=== PATIENT | female | born 1935 | race Hispanic/Latino ===

== ENCOUNTER 2017-02-28 13:46 | Emergency (ER) | payer MEDICARE ==
[2017-02-28 13:46] VITALS: BMI 47.8
[2017-02-28 14:14] VITALS: TEMP 98.6
[2017-02-28 14:26] VITALS: O2SAT 98
--- NOTE | 2017-02-28 14:44 | ED PDOC ---
Arrival/HPI - General Chief Complaint: Trauma Time Seen by Provider: 02/28/17 14:17 Historian: Patient - History of Present Illness Narrative History of Present Illness (Text): 02/28/17 14:40 82 year old female, whose past medical history includes hypertension, presents to the emergency department complaining of injury s/p fall. 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 Patient injured her left shoulder, head, and coccyx. She has experienced intermittent dizziness since fall. Also, patient mentions having chronic vertigo prior to incident. Patient denies of any loss of consciousness, nausea, vomiting, weakness, chest pain, palpitations, paresis, or any other complaints. No PMD Time/Duration: < week (6 days) Symptom Onset: Sudden Symptom Course: Unchanged Associated Symptoms (Text): 02/28/17 15:18 Chronic vertigo. No improvement with meclizine. Reports 6 days ago she bent over to fiber picker a bingham and developed severe vertigo. She fell onto her coccyx shoulder and head. No chest pain palpitations or dyspnea. No abdominal pain nausea or vomiting. No other injury or trauma. She appears to be in no distress. Past Medical History - Provider Review Nursing Documentation Reviewed: Yes - Infectious Disease Hx of Infectious Diseases: None - Tetanus Immunization Tetanus Immunization: Unknown - Reproductive Menopause: Yes - Cardiac Hx Hypertension: Yes Hx Pacemaker: No - Neurological Hx Paralysis: No - Hematological/Oncological Hx Blood Transfusions: No Hx Blood Transfusion Reaction: No - Musculoskeletal/Rheumatological Hx Musculoskeletal Disorders: Yes (SCIATICA) - Psychiatric Hx Depression: No Hx Emotional Abuse: No Hx Physical Abuse: No Hx Substance Use: No - Surgical History Hx Cholecystectomy: Yes Hx Coronary Stent: Yes Hx Hysterectomy: Yes Hx Orthopedic Surgery: Yes (Left Knee Replacement) - Anesthesia Hx Anesthesia Reactions: No Hx Malignant Hyperthermia: No - Suicidal Assessment Feels Threatened In Home Enviroment: No Family/Social History - Physician Review Nursing Documentation Reviewed: Yes Family/Social History: No Known Family HX Smoking Status: Never Smoked Hx Alcohol Use: No Hx Substance Use: No Hx Substance Use Treatment: No Allergies/Home Meds Allergies/Adverse Reactions: Allergies No Known Allergies Allergy (Verified 09/17/13 18:46) Home Medications: Home Meds Medication Instructions Recorded Confirmed Aspirin [Lora Aspirin Children's] 81 mg PO DAILY 12/09/12 02/28/17 Paroxetine HCl [Paroxetine] 20 mg PO DAILY 12/09/12 02/28/17 Metoprolol Succinate 50 mg PO BID 03/27/13 02/28/17 Simvastatin 40 mg PO DAILY 09/17/13 02/28/17 Dexlansoprazole [Dexilant] 30 mg PO DAILY 02/28/17 02/28/17 Iron Pill 65 mg PO DAILY 02/28/17 02/28/17 Meclizine [Antivert] 12.5 mg PO 02/28/17 Valsartan/Hydrochlorothiazide 1 tab PO DAILY 02/28/17 02/28/17 [Valsartan and Hydrochlorothiazide 12.5 mg-160] Vitamin E [Vitamin E 400 Units Cap] 400 iu PO DAILY 02/28/17 02/28/17 oxyCODONE [oxycodone Hydrochloride] 0 mg PO PRN PRN 02/28/17 02/28/17 Review of Systems - Physician Review All systems were reviewed & negative as marked: Yes - Review of Systems Constitutional: Normal Respiratory: Normal Cardiovascular: absent: Chest Pain, Palpitations Gastrointestinal: absent: Abdominal Pain, Nausea, Vomiting Musculoskeletal: Other (left shoulder, coccyx, and head injury) Neurological: Dizziness. absent: Headache, Focal Weakness, Gait Changes, Seizure, Other (no loss of consciousness) Physical Exam Vital Signs Reviewed: Yes Vital Signs Temp Pulse Resp BP Pulse Ox 02/28/17 16:00 55 L 16 138/65 98 02/28/17 14:20 60 18 134/54 L 98 02/28/17 14:09 98.6 F 56 L 18 134/54 L 97 Temperature: Afebrile Blood Pressure: Normal Pulse: Regular Respiratory Rate: Normal Appearance: Positive for: Other (morbidly obese) Pain Distress: None Mental Status: Positive for: Alert and Oriented X 3 - Systems Exam Head: Present: Atraumatic, Normocephalic Pupils: Present: PERRL Extroacular Muscles: Present: EOMI Conjunctiva: Present: Normal Ears: Present: NORMAL TM, Normal Canal. No: Erythema, TM Bulging Mouth: Present: Moist Mucous Membranes Pharnyx: No: ERYTHEMA, EXUDATE, TONSILS ENLARGED Neck: Present: Normal Range of Motion Respiratory/Chest: Present: Clear to Auscultation, Good Air Exchange. No: Respiratory Distress, Accessory Muscle Use Cardiovascular: Present: Regular Rate and Rhythm, Normal S1, S2. No: Murmurs Abdomen: Present: Normal Bowel Sounds. No: Tenderness, Distention, Peritoneal Signs, Rebound, Guarding Back: Present: Normal Inspection Upper Extremity: Present: Normal ROM, Tenderness (left lateral shoulder tenderness). No: Swelling, Other (no skin changes) Lower Extremity: Present: Normal ROM, Tenderness (point tenderness to coccyx). No: Edema, CALF TENDERNESS, Swelling Neurological: Present: GCS=15, CN II-XII Intact, Speech Normal, Motor Func Grossly Intact, Normal Sensory Function, Normal Cerebellar Funct, Gait Normal, Memory Normal Skin: Present: Warm, Dry, Normal Color. No: Rashes Psychiatric: Present: Alert, Oriented x 3, Normal Insight, Normal Concentration Medical Decision Making ED Course and Treatment: 02/28/17 14:44 Impression: 82 year old female with left shoulder, head, and coccyx injury s/p fall. Physical exam shows point tenderness to coccyx; left lateral shoulder tenderness, full ROM, no skin changes, no swelling; normal neuro exam. Plan: -- EKG -- Head CT -- Chest X-ray -- Coccyx X-Ray -- Left Shoulder X-Ray -- Labs -- Reassess and disposition Prior Visits: Notes and results from previous visits were reviewed. Patient was last seen in the emergency department on 09/17/2013 for left knee and right elbow ecchymosis. Patient was discharged home. Progress Notes: 02/28/17 15:17 EKG shows sinus bradycardia rate approximately [address] or T-wave changes 02/28/17 17:22 X-rays coccyx shows no fracture or dislocation. Left shoulder shows no fracture or dislocation. Chest one view no infiltrate effusion or cardiomegaly. - Lab Interpretations Lab Results: 02/28/17 15:00 02/28/17 15:00 Lab Results 02/28/17 15:00: Sodium 141, Potassium 4.9, Chloride 105, Carbon Dioxide 25, Anion Gap 16, BUN 20, Creatinine 1.0, Est GFR ( Amer) > 60, Est GFR (Non- Af Amer) 53, Random Glucose 103, Calcium 9.2, Magnesium 1.9, Total Bilirubin 0.7 , AST 53 H, ALT 54, Alkaline Phosphatase 69, Lactate Dehydrogenase 487, Total Creatine Kinase 33 L, Troponin I < 0.01, Total Protein 7.7, Albumin 4.4, Globulin 3.4, Albumin/Globulin Ratio 1.3 02/28/17 15:00: WBC 7.2, RBC 4.22, Hgb 13.0, Hct 38.3, MCV 90.8, MCH 30.8, MCHC 33.9, RDW 13.6, Plt Count 131, MPV 10.6, Gran % 48.7 L, Lymph % (Auto) 42.9 H, [place] % (Auto) 7.3 H, Eos % (Auto) 0.8 L, Baso % (Auto) 0.3, Gran # 3.48, Lymph # 3.1, [place] # 0.5, Eos # 0.1, Baso # 0.02 I have reviewed the lab results: Yes - RAD Interpretation Radiology Orders: 02/28/17 14:38 CHEST ONE VIEW FALL PROTOCOL [RAD] Stat SACRUM &/or COCCYX (MIN 2VW) [RAD] Stat SHOULDER LEFT [RAD] Stat 02/28/17 14:39 HEAD W/O CONTRAST [CT] Stat CT scan of the head as read by the radiologist shows no acute findings. Core Loader: Radiologist - Scribe Statement The provider has reviewed the documentation as recorded by the Christen Tsang Provider Scribe Attestation: All medical record entries made by the Scribe were at my direction and personally dictated by me. I have reviewed the chart and agree that the record accurately reflects my personal performance of the history, physical exam, medical decision making, and the department course for this patient. I have also personally directed, reviewed, and agree with the discharge instructions and disposition. Disposition/Present on Arrival - Present on Arrival Any Indicators Present on Arrival: No History of DVT/PE: No History of Uncontrolled Diabetes: No Urinary Catheter: No History of Decub. Ulcer: No History Surgical Site Infection Following: None - Disposition Have Diagnosis and Disposition been Completed?: Yes Diagnosis: Vertigo, Dizziness, Coccyx contusion, Shoulder sprain Disposition: HOME/ ROUTINE Disposition Time: 17:23 Patient Plan: Discharge Condition: GOOD Discharge Instructions (ExitCare): Vertigo (ED), Dizziness (ED), Coccyx Injury (ED), Shoulder Sprain (ED) Additional Instructions: Follow-up with your PMD and neurologist. Follow up in the ER as needed. Prescriptions: Meclizine [Meclizine*] 25 mg PO Q6 #20 tab Forms: [employer] (Swedish)
[2017-02-28 15:28] LABS: BASO # 0.02 K/mm3 (0.0-2.0); BASO % 0.3 % (0.0-3.0); EOS # 0.1 (0.0-0.7); EOS % 0.8 % (1.5-5.0); GRAN # 3.48 (1.4-6.5); GRAN % 48.7 % (50.0-68.0); HEMATOCRIT 38.3 % (36.0-48.0); LYMPH # 3.1 (1.2-3.4); LYMPH % 42.9 % (22.0-35.0); MEAN CELL VOLUME 90.8 fl (80.0-105.0); MEAN CORPUSCULAR HEMOGLOBIN 30.8 pg (25.0-35.0); MEAN CORPUSCULAR HGB CONC 33.9 g/dl (31.0-37.0); MEAN PLATELET VOLUME 10.6 fl (7.0-11.0); MONO # 0.5 (0.1-0.6); MONO % 7.3 % (1.0-6.0); RED CELL DISTRIBUTION WIDTH 13.6 % (11.5-14.5); WHITE BLOOD COUNT 7.2 10^3/ul (4.5-11.0)
[2017-02-28 15:30] LABS: ALB/GLOB RATIO 1.3 (1.1-1.8); ALKALINE PHOSPHATASE 69 U/L (38-126); ALT/SGPT 54 U/L (7-56); AST/SGOT 53 U/L (14-36); BILIRUBIN,TOTAL 0.7 mg/dL (0.2-1.3); BLOOD UREA NITROGEN 20 mg/dL (7-21); CALCIUM 9.2 mg/dL (8.4-10.5); CARBON DIOXIDE 25 mmol/L (21-33); CHLORIDE 105 mmol/L (98-107); GFR AFRICAN-AMERICAN > 60; GLUCOSE,RANDOM 103 mg/dL (70-110); MAGNESIUM 1.9 mg/dL (1.7-2.2); POTASSIUM 4.9 mmol/L (3.6-5.0); SODIUM 141 mmol/L (132-148); TOTAL PROTEIN 7.7 g/dL (5.8-8.3)
[2017-02-28 15:48] LABS: TROPONIN I < 0.01 ng/mL
[2017-02-28 16:42] VITALS: BP 138/65; PULSE 55; RESP 16
--- NOTE | 2017-02-28 16:46 | CT ---
PROCEDURE: CT HEAD WITHOUT CONTRAST. HISTORY: dizzy COMPARISON: None available. TECHNIQUE: Axial computed tomography images were obtained through the head/brain without intravenous contrast. Radiation dose: Total exam DLP = 726.57 mGy-cm. This CT exam was performed using one or more of the following dose reduction techniques: Automated exposure control, adjustment of the mA and/or kV according to patient size, and/or use of iterative reconstruction technique. FINDINGS: HEMORRHAGE: No intracranial hemorrhage. BRAIN: No mass effect or edema. Age related senescent change VENTRICLES: Unremarkable. No hydrocephalus. CALVARIUM: Unremarkable. PARANASAL SINUSES: Unremarkable as visualized. No significant inflammatory changes. MASTOID AIR CELLS: Unremarkable as visualized. No inflammatory changes. OTHER FINDINGS: None. IMPRESSION: No acute intracranial abnormalities. No significant findings to account for the clinical presentation.
--- NOTE | 2017-02-28 19:43 | CARD ---
APPROVED REPORT EKG Measurement Heart [id number] CT 168P-25 [id number] <Conclusion> Sinus bradycardia Otherwise normal ECG
--- NOTE | 2017-03-01 09:30 | RAD ---
PROCEDURE: Radiographs of the Sacrum and Coccyx HISTORY: trauma COMPARISON: None available. TECHNIQUE: Frontal and lateral views of the sacrum and coccyx FINDINGS: BONES: Examination is technically limited. No definite fracture is identified. Cannot exclude small nondisplaced fracture on the basis of this limited examination. The sacral foraminae appear intact. SACROILIAC JOINTS: Unremarkable. OTHER FINDINGS: None. IMPRESSION: Limited examination. No definite fracture.
--- NOTE | 2017-03-01 09:34 | RAD ---
PROCEDURE: CHEST RADIOGRAPH, 1 VIEW HISTORY: dizzy COMPARISON: 12/09/2012 FINDINGS: LUNGS: Clear. PLEURA: No pneumothorax or pleural fluid seen. CARDIOVASCULAR: Normal. OSSEOUS STRUCTURES: No significant abnormalities. VISUALIZED UPPER ABDOMEN: Normal. OTHER FINDINGS: None. IMPRESSION: No active disease.
--- NOTE | 2017-03-01 09:35 | RAD ---
PROCEDURE: Radiographs of the Left Shoulder HISTORY: trauma COMPARISON: No prior. FINDINGS: BONES: Normal. No fracture. JOINTS: Normal. Glenohumeral and acromioclavicular joints preserved. No osteoarthritis. SOFT TISSUES: Normal. OTHER FINDINGS: None. IMPRESSION: Normal radiographs of the left shoulder.
== END 2017-02-28 17:55 | disposition home or self-care (01) ==
LOC: ED 13:46
DX: S30.0XXA Contusion of lower back and pelvis, initial encounter (principal); S43.402A Unspecified sprain of left shoulder joint, initial encounter; X50.1XXA Overexertion from prolonged static or awkward postures, initial encounter; R42 Dizziness and giddiness; I10 Essential (primary) hypertension

== ENCOUNTER 2018-08-11 16:40 | Emergency (ER) | payer MEDICARE ==
[2018-08-11 16:41] VITALS: BMI 47.8
--- NOTE | 2018-08-11 17:38 | ED PDOC ---
Arrival/HPI - General Chief Complaint: Finger,Hand,&Wrist Time Seen by Provider: 08/11/18 16:58 Historian: Patient, Family (Daughter) - History of Present Illness Narrative History of Present Illness (Text): 08/11/18 21:01 83 y/o female with PMH of HTN presents to the emergency department with daughter c/o left hand swelling. Pt is unsure when the swelling began, but her daughter noticed it this morning when visiting, prompting visit to Emergency department. Admits to noncompliance with BP medications, has not taken them in several months because she "felt better". Denies fevers, chills, numbness, weakness, paresthesias, hand pain, hand redness, SOB, chest pain, headache, vision changes, dizziness, back pain, cough, congestion, or any other associated symptoms. PMD: Dr. Bearden Polytechnic Teacher: Dr. Briscoe Past Medical History - Provider Review Nursing Documentation Reviewed: Yes - Infectious Disease Hx of Infectious Diseases: None - Tetanus Immunization Tetanus Immunization: Unknown - Cardiac Hx Hypertension: Yes (Not on med) Hx Pacemaker: No - Neurological Hx Paralysis: No - Hematological/Oncological Hx Blood Transfusions: No Hx Blood Transfusion Reaction: No - Musculoskeletal/Rheumatological Hx Musculoskeletal Disorders: Yes (SCIATICA) - Gastrointestinal Hx Gastroesophageal Reflux: Yes - Psychiatric Hx Bipolar Disorder: Yes Hx Depression: No Hx Emotional Abuse: No Hx Physical Abuse: No Hx Substance Use: No - Surgical History Hx Cholecystectomy: Yes Hx Coronary Stent: Yes Hx Hysterectomy: Yes Hx Orthopedic Surgery: Yes (Left Knee Replacement) - Anesthesia Hx Anesthesia Reactions: No Hx Malignant Hyperthermia: No - Suicidal Assessment Feels Threatened In Home Enviroment: No Family/Social History - Physician Review Nursing Documentation Reviewed: Yes Family/Social History: No Known Family HX Smoking Status: Never Smoked Hx Alcohol Use: No Hx Substance Use: No Hx Substance Use Treatment: No Allergies/Home Meds Allergies/Adverse Reactions: Allergies No Known Allergies Allergy (Verified 08/11/18 17:02) Home Medications: Home Meds Medication Instructions Recorded Confirmed Aspirin [Lora Aspirin Children's] 81 mg PO DAILY 12/09/12 08/11/18 Paroxetine HCl [Paroxetine] 20 mg PO DAILY 12/09/12 08/11/18 Simvastatin 40 mg PO DAILY 09/17/13 08/11/18 Dexlansoprazole [Dexilant] 30 mg PO DAILY 10/16/17 03/29/19 Review of Systems - Review of Systems Constitutional: Normal. absent: Fevers Eyes: Normal. absent: Vision Changes ENT: Normal. absent: Sore Throat, Sinus Congestion Respiratory: Normal. absent: SOB, Cough Cardiovascular: Normal. absent: Chest Pain, Palpitations Gastrointestinal: Normal. absent: Abdominal Pain, Stool Changes, Nausea, Vomiting, Appetite Changes Genitourinary Female: Normal. absent: Dysuria, Frequency Musculoskeletal: Normal. absent: Arthralgias, Back Pain Skin: Other (left hand swelling). absent: Rash Neurological: Normal. absent: Headache, Dizziness, Focal Weakness, Speech Changes Endocrine: Normal Hemo/Lymphatic: Normal Psychiatric: Normal Physical Exam Vital Signs Reviewed: Yes Vital Signs Temp Pulse Resp BP Pulse Ox 08/11/18 16:56 97.5 F L 63 18 201/67 H 96 Temperature: Afebrile Blood Pressure: Hypertensive Pulse: Regular Respiratory Rate: Normal Appearance: Positive for: Well-Appearing, Non-Toxic, Comfortable Pain Distress: None Mental Status: Positive for: Alert and Oriented X 3 - Systems Exam Head: Present: Atraumatic, Normocephalic Pupils: Present: PERRL Extroacular Muscles: Present: EOMI Conjunctiva: Present: Normal Mouth: Present: Moist Mucous Membranes Neck: Present: Normal Range of Motion. No: Meningeal Signs, Paraspinal Tenderness Respiratory/Chest: Present: Good Air Exchange, Rales (minimal, bilateral bases). No: Respiratory Distress, Accessory Muscle Use Cardiovascular: Present: Regular Rate and Rhythm, Normal S1, S2, Peripheal Pulses Present Abdomen: Present: Normal Bowel Sounds. No: Tenderness, Distention, Peritoneal Signs, Rebound, Guarding Back: Present: Normal Inspection. No: CVA Tenderness, Midline Tenderness, Paraspinal Tenderness Upper Extremity: Present: Normal Inspection, Normal ROM, NORMAL PULSES, Swelling (left hand and distal forearm edema), Neurovascularly Intact, Capillary Refill < 2s. No: Cyanosis, Edema, Tenderness, Temperature Abnormalties Lower Extremity: Present: Normal Inspection, Edema (mild bilateral edema), Normal ROM, Neurovascularly Intact. No: Tenderness, Temperature Abnormalties Neurological: Present: GCS=15, CN II-XII Intact, Speech Normal, Motor Func Grossly Intact, Normal Sensory Function, Gait Normal Skin: Present: Warm, Dry, Normal Color. No: Rashes Psychiatric: Present: Alert, Oriented x 3, Normal Insight, Normal Concentration, Normal Affect, Normal Mood Medical Decision Making ED Course and Treatment: 08/11/18 17:18 Initial Plan: * CBC, CMP * BNP * Left Hand XR * Left Arm Venous Duplex Bloodwork reviewed, pt hyperkalemic, will redraw potassium. BNP mildly elevated at 968. Otherwise unremarkable. Pt with normal O2 sat and no SOB. Venous duplex negative Xrays negative for acute pathology as read by me [id number] Bearden, patient's PMD, and reviewed case and diagnostic study results. Recommends no admission; discharge home with outpatient followup after dose of lasix. Case discussed with Emergency department attending Dr. Crenshaw, who agrees with disposition. Patient's pressure found to be elevated prior to discharge. Will repeat after lasix. Potassium has improved. 2344 Patient examined at bedside by Emergency department attending Dr. Fowler who agrees with plan of care and disposition. Pressure has improved with lasix. States she takes 80mg valsartan for her HTN. Will give first dose here and discharge home with short term prescription. Pt advised to fill prescription for BP meds tomorrow. Pt is completely asymptomatic from HTN. No headache, vision changes, dizziness, nausea, vomiting, abdominal pain, back pain, numbness, weakness, paresthesias, or any other associated symptoms. Diagnostic testing results and plan of care discussed with patient. Strict instructions given regarding prescription use, importance of followup, and signs/symptoms to return to ER including headache, pain, weakness, numbness, dizziness, or any other new/worsening symptoms. Pt verbalized understanding of discussion. Patient is A&Ox3, ambulating with steady gait, with vital signs stable for discharge. - Lab Interpretations Lab Results: 08/11/18 18:30 08/11/18 20:50 Lab Results 08/11/18 20:50: Potassium 4.6 08/11/18 18:30: PT 13.9 H, INR 1.25, APTT 35.4 08/11/18 18:30: Sodium 141, Potassium 5.2 H, Chloride 108 H, Carbon Dioxide 27, Anion Gap 11, BUN 19, Creatinine 0.9, Est GFR ( Amer) > 60, Est GFR (Non- Af Amer) 60, Random Glucose 110, Calcium 8.7, Total Bilirubin 0.4, AST 30, ALT 15, Alkaline Phosphatase 78, NT-Pro-B Natriuret Pep 986 H, Total Protein 7.6, Albumin 4.0, Globulin 3.6, Albumin/Globulin Ratio 1.1 08/11/18 18:30: WBC 5.5, RBC 3.86, Hgb 11.5 L, Hct 34.9 L, MCV 90.4, MCH 29.8, MCHC 33.0, RDW 14.8 H, Plt Count 104 L, MPV 9.8, Neut % (Auto) 38.8 L, Lymph % (Auto) 50.6 H, [place] % (Auto) 8.8 H, Eos % (Auto) 1.6, Baso % (Auto) 0.2, Lymph # (Auto) 2.8, [place] # (Auto) 0.5, Eos # (Auto) 0.1, Baso # (Auto) 0.01, Absolute Neuts (auto) 2.12 I have reviewed the lab results: Yes - RAD Interpretation Narrative RAD Interpretations (Text): 08/12/18 03:31 Venous Duplex FINDINGS: The visualized left internal jugular vein is sonographically normal and compressible. No evidence of obstruction or thrombus is seen. The visualized segments of the left subclavian vein are patent with normal waveforms. No sonographic evidence of obstruction or thrombosis is seen. The visualized deep venous system of the proximal leftupper extremity is sonographically normal and compressible. IMPRESSION: 1. No sonographic evidence for deep venous thrombosis in the visualized segments of the left upper extremity. Radiology Orders: 08/11/18 17:15 DUPLEX UPPER EXTRM VEIN LEFT [US] Stat 08/11/18 17:16 HAND LEFT 3 VIEWS ROUTINE [RAD] Stat 08/11/18 17:17 CHEST PORTABLE [RAD] Stat - EKG Interpretation EKG Interpretation (Text): 08/12/18 03:31 Rate 58; Sinus bradycardia; Normal intervals; No STEMI, no signs of hyperkalemia Interpreted by ED Physician: Yes Type: 12 lead EKG Disposition/Present on Arrival - Present on Arrival Any Indicators Present on Arrival: No History of DVT/PE: No History of Uncontrolled Diabetes: No Urinary Catheter: No History of Decub. Ulcer: No History Surgical Site Infection Following: None - Disposition Have Diagnosis and Disposition been Completed?: Yes Diagnosis: Edema, Elevated brain natriuretic peptide (BNP) level, Elevated blood pressure reading Disposition: HOME/ ROUTINE Disposition Time: 23:45 Condition: STABLE Discharge Instructions (ExitCare): Fluid Restricted Diet, Hypotension (ED), Hypertension (ED) Additional Instructions: Followup with Dr. Bearden within 2 days Compress and elevate arm Tylenol as needed for finger pain Continue home medication as prescribed Return to ER with any new/worsening symptoms Prescriptions: Valsartan 80 mg PO DAILY #7 tablet Referrals: Scotty Parada MD [Staff Provider] - Follow up with primary Forms: [employer] (Faroese)
[2018-08-11 18:42] LABS: BASO # 0.01 K/mm3 (0.0-2.0); BASO % 0.2 % (0.0-3.0); EOS # 0.1 (0.0-0.7); EOS % 1.6 % (1.5-5.0); HEMOGLOBIN 11.5 g/dL (12.0-16.0); LYMPH # 2.8 (1.2-3.4); LYMPH % 50.6 % (22.0-35.0); MEAN CELL VOLUME 90.4 fl (80.0-105.0); MEAN CORPUSCULAR HEMOGLOBIN 29.8 pg (25.0-35.0); MEAN PLATELET VOLUME 9.8 fl (7.0-11.0); MONO # 0.5 (0.1-0.6); MONO % 8.8 % (1.0-6.0); RBC 3.86 10^6/uL (3.5-6.1); RED CELL DISTRIBUTION WIDTH 14.8 % (11.5-14.5); WHITE BLOOD COUNT 5.5 10^3/uL (4.5-11.0)
[2018-08-11 18:45] LABS: ALB/GLOB RATIO 1.1 (1.1-1.8); ALT/SGPT 15 U/L (7-56); AST/SGOT 30 U/L (14-36); BLOOD UREA NITROGEN 19 mg/dL (7-21); CALCIUM 8.7 mg/dL (8.4-10.5); GFR NON-AFRICAN AMERICAN 60
[2018-08-11 18:46] LABS: INR 1.25; PARTIAL THROMBOPLASTIN TIME 35.4 Seconds (26.9-38.3); PROTHROMBIN TIME 13.9 SECONDS (9.4-12.5)
[2018-08-11 18:53] LABS: B-TYPE NATRIURETIC PEPTIDE 986 pg/mL (0-450)
--- NOTE | 2018-08-11 20:33 | US ---
PROCEDURE: Left upper extremity venous ultrasound HISTORY: Arm pain and swelling. Evaluate for deep venous thrombosis. PHYSICIAN(S): Herbert Jiang MD. FINDINGS: The visualized leftinternal jugular vein is sonographically normal and compressible. No evidence of obstruction or thrombus is seen. The visualized segments of the left subclavian vein are patent with normal waveforms. No sonographic evidence of obstruction or thrombosis is seen. The visualized deep venous system of the proximal leftupper extremity is sonographically normal and compressible. IMPRESSION: 1. No sonographic evidence for deep venous thrombosis in the visualized segments of the left upper extremity.
[2018-08-11 22:07] VITALS: RESP 16; O2SAT 97
[2018-08-11 23:51] VITALS: BP 187/84; TEMP 98
[2018-08-12 00:07] VITALS: PULSE 76
--- NOTE | 2018-08-12 08:23 | RAD ---
Date of service: 08/11/2018 HISTORY: leg arm swelling COMPARISON: 02/28/2017 TECHNIQUE: 1 view obtained. FINDINGS: LUNGS: No active pulmonary disease. PLEURA: No significant pleural effusion identified, no pneumothorax apparent. CARDIOVASCULAR: No aortic atherosclerotic calcification present. Normal cardiac size. No pulmonary vascular congestion. OSSEOUS STRUCTURES: No significant abnormalities. VISUALIZED UPPER ABDOMEN: Normal. OTHER FINDINGS: None. IMPRESSION: No active disease.
--- NOTE | 2018-08-12 08:38 | RAD ---
PROCEDURE: Left Hand Radiographs. HISTORY: left hand swelling, 4th digit pain COMPARISON: None. TECHNIQUE: 3 views obtained. FINDINGS: BONES: Normal. No fracture. JOINTS: Normal. No osteoarthritic changes. SOFT TISSUES: Normal. OTHER FINDINGS: None. IMPRESSION: Normal left hand radiographs.
--- NOTE | 2018-08-12 18:58 | CARD ---
APPROVED REPORT Date of service: 08/11/2018 EKG Measurement Heart [id number] 150P-18 [id number] <Conclusion> Sinus bradycardia Otherwise normal ECG
== END 2018-08-12 00:13 | disposition home or self-care (01) ==
LOC: ED 16:40
DX: R60.9 Edema, unspecified (principal); R79.89 Other specified abnormal findings of blood chemistry; I10 Essential (primary) hypertension; Z95.5 Presence of coronary angioplasty implant and graft
CPT/HCPCS: 71045; 73130; 80053; 83880; 84132; 85025; 85610; 85730; 93005; 93971; 96374; 99284; J1940